=== PATIENT | female | born 1970 | race Caucasian/White ===

== ENCOUNTER → 2016-10-03 15:55 | Outpatient (CLI) | payer BC | END | disposition home or self-care (01) | LOC: D.MAMMO 10:00 | DX: N63 Unspecified lump in breast (principal) ==

== ENCOUNTER → 2016-10-16 12:55 | Outpatient (CLI) | payer MEDICAID | END | disposition home or self-care (01) | LOC: D.US 12:55 | DX: N60.09 Solitary cyst of unspecified breast (principal) ==

== ENCOUNTER → 2017-05-22 18:45 | Outpatient (CLI) | payer MEDICAID | END | disposition home or self-care (01) | LOC: D.MAMMO 13:30 | DX: R92.8 Other abnormal and inconclusive findings on diagnostic imaging of breast (principal) ==

== ENCOUNTER → 2018-05-29 21:24 | Outpatient (CLI) | payer MEDICAID | END | disposition home or self-care (01) | LOC: D.MAMMO 09:30 | DX: N60.09 Solitary cyst of unspecified breast (principal) ==